=== PATIENT | female | born 2005 | race Asian ===

== ENCOUNTER 2025-04-06 22:05 | Emergency (ER) | payer OTHER, BC ==
[2025-04-07] MEDS: cefTRIAXone 500 MG, Lidocaine 1% 1 ML IM ONE (02:08)
== END 2025-04-07 02:18 | disposition home or self-care (01) ==
LOC: JP.ED 22:05
DX: T74.21XA Adult sexual abuse, confirmed, initial encounter (principal); B20 Human immunodeficiency virus [HIV] disease; Y07.9 Unspecified perpetrator of maltreatment and neglect
CPT/HCPCS: 96372; 99284; A9270-GY; J0696; J2003